=== PATIENT | male | born 1960 | race Caucasian/White ===

== ENCOUNTER → 2021-05-11 16:06 | Outpatient (CLI) | payer OTHER, SELFPAY ==
--- NOTE | 2021-05-11 | DI.ECHO.S_ITS ---
[facility] +---------+ : : [address] : : : : [id number] : : : : Phone: [phone]+ Echocardiogram Report + + :Name: KOBE CHOI Study Date: 05/11/2021 Height: 74 in : :[facility] ReadingLocation: Weight: 235 lb : : Gender: Male BSA: 2.3 m2 : :: 1960 Age: 60 yrs BP: 156/89 mmHg: :Reason For Study: ABNORMAL RESULT OF OTHER CARDIOVASCULAR : :FUNCTION STUDY : :Ordering Physician: NADIA, : :MYRIAM Performed By: Laura Moore : :Referring: MYRIAM ZUNIGA M : + + Interpretation Summary The ejection fraction is estimated to be 60-65%. There is no significant valvular heart disease. Procedure: A two-dimensional transthoracic echocardiogram with color flow and Doppler was performed. The study quality was technically adequate. There is no prior echocardiogram noted for this patient. The patient was in sinus rhythm with heart rates between 70-82 bpm during the exam. Left Ventricle: The left ventricle is normal in size and wall thickness. The ejection fraction is estimated to be 60-65%. Left ventricular wall motion is normal. Diastolic parameters suggest probable normal left ventricular diastolic function and normal filling pressures. Right Ventricle: The right ventricle is normal in size and function. Atria: Both atria are normal in size. There is no Doppler evidence for an interatrial shunt. Mitral Valve: The mitral valve is normal in structure and function. There is no mitral regurgitation noted. Aortic Valve: The aortic valve is trileaflet. The aortic valve opens well. There is no aortic valve stenosis. No aortic regurgitation is present. Tricuspid Valve: The tricuspid valve is normal in structure and function. No tricuspid regurgitation. Pulmonary artery pressures cannot be estimated because of the lack of a measurable TR jet velocity but the IVC suggests a CVP of around 3 mmHg. Pulmonic Valve: The pulmonic valve leaflets are thin and pliable; valve motion is normal. There is trace pulmonic regurgitation. Great Vessels: The aortic root is normal size. The dimensions of the ascending aorta are normal. The IVC is of normal diameter and collapses greater than 50% with a sniff. This suggests a low right atrial pressure of 3 mm Hg. Pericardium/ Pleura There is no pericardial effusion. There is no pleural effusion. MMode/2D Measurements & Calculations LVIDd: 5.0 cm LVOT diam: 2.4 cm LVIDs: 3.4 cm Ao root diam: 3.2 cm FS: 31.0 % asc Aorta Diam: 3.3 cm IVSd: 1.0 cm Ao Arch Diam (Prox Trans): 3.1 cm LVPWd: 1.0 cm LV willoughby. diameter/BSA (cm/m^2): 2.1 LV sys. diameter/BSA (cm/m^2): 1.5 LA A2 area: 24.0 cm2 RA long axis: 5.5 cm LA A4 area: 19.6 cm2 RA area: 19.5 cm2 LA length (vol): 5.8 cm RA vol: 58.1 ml LA vol: 68.8 ml RA : 25.0 ml/m2 LA vol index: 29.6 ml/m2 IVC diam: 1.5 cm RVD1 (basal): 3.6 cm TAPSE: 2.3 cm Doppler Measurements & Calculations Ao V2 max: 149.5 cm/sec LVOT Max Troy: 120.6 cm/sec Ao V2 mean: 101.2 cm/sec LV V1 max P.8 mmHg Ao max P.9 mmHg LV V1 VTI: 23.9 cm Ao mean P.6 mmHg EDVIN(I,D): 3.9 cm2 Ao V2 VTI: 27.3 cm EDVIN(V,D): 3.6 cm2 sev ratio: 0.87 EDVIN indexed to BSA (cm^2/m^2): 1.7 MV E max troy: 70.3 cm/sec PA V2 max: 122.3 cm/sec MV A max troy: 66.1 cm/sec PA V2 mean: 83.9 cm/sec MV E/A: 1.1 PA mean P.3 mmHg Med Peak E' Troy: 10.1 cm/sec PA pr(Accel): 31.0 mmHg E/E' med: 6.9 Lat Peak E' Troy: 9.6 cm/sec E/E' lat: 7.3 E/e' average: 7.1 MV dec time: 0.17 sec SVALEXEI): 105.8 ml Reading Physician:12:35 PM
== END ==
PROVIDERS: PCP Family Medicine; Referring Provider Family Medicine; Visit Provider Family Medicine
DX: R94.39 Abnormal result of other cardiovascular function study (principal)
CPT/HCPCS: 93306

== ENCOUNTER → 2021-09-29 15:08 | Outpatient (CLI) | payer OTHER, SELFPAY ==
[2021-09-29 16:13] LABS: Alanine Aminotransferase 32 IU/L (<50); Albumin 4.5 g/dL (3.5-5.0); Alkaline Phosphatase 40 U/L (38-126); Aspartate Aminotransferase 34 IU/L (17-59); BUN Creatinine Ratio 12.6 (6-22); Blood Urea Nitrogen 19 mg/dL (9-20); Calcium 9.9 mg/dL (8.4-10.2); Carbon Dioxide 27 mmol/L (22-32); Chloride 102 mmol/L (98-107); Estimated Glomerular Filt Rate 46.9 mL/min (>60); Globulin 2.3 g/dL (1.7-4.1); Glucose 90 mg/dL (80-110); HEMOLYSIS < 15 (0-50); Lipase 221 U/L (23-300); Potassium 4.4 mmol/L (3.4-5.1); Sodium 138 mmol/L (137-145); Total Protein 6.8 g/dL (6.3-8.2)
== END ==
PROVIDERS: PCP Family Medicine; Referring Provider Family Medicine; Visit Provider Family Medicine
DX: K57.90 Diverticulosis of intestine, part unspecified, without perforation or abscess without bleeding (principal); I10 Essential (primary) hypertension; R63.5 Abnormal weight gain
CPT/HCPCS: 36415; 80053; 83690

== ENCOUNTER → 2021-10-12 11:46 | Outpatient (CLI) | payer OTHER, SELFPAY ==
[2021-10-12 12:39] LABS: COVID19 -Nasal RAPID Negative (Negative)
== END ==
PROVIDERS: PCP Family Medicine; Referring Provider Physician Assistant; Visit Provider Physician Assistant
DX: Z20.822 Contact with and (suspected) exposure to COVID-19 (principal)
CPT/HCPCS: 87635

== ENCOUNTER 2021-10-14 11:55 | Day surgery (SDC) | payer OTHER, SELFPAY ==
--- NOTE | 2021-10-14 12:22 | P.HP_ITS ---
History of Present Illness History of Present Illness Date Patient Seen: 10/14/21 Chief complaint: [facility] [place] Narrative: 61 Years Old Male seen today for consideration of a screening colonoscopy. 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 He also had mild diverticulosis in the sigmoid colon. Reports that he does have some bright red bleeding if he wipes too hard after a stool. Otherwise, there have been no lower GI symptoms suggesting disease such as change in bowel habits, abdominal pain or anemia. There's been no family history of colon cancer or colon polyps. Overall health issues have been stable, including no major cardiac events for at least 6 weeks. Past Medical History: EKG 2009 Lateral Epidcondilitis (2009) Left shoulder, labial and capular tears Hyperlipidemia Hypertension Prostatitis Sacroiliitis Past Surgical History: Colonoscopy 2010, 2015 R knee, 2019 R elbow, 2011 Family History: Father: Heart Disease, Hyperlipidemia, diverticulitis Social History: Marital Status: - Caregiver, [employer] Occupation: [employer] 1-2 drinks per day Patient History Medical History (Updated 10/14/21 @ 12:43 by Betty Toscano RN) Cataract Chondritis Gallbladder pain Hypertension Serum lipids high Meds Home Medications and Allergies Home Medications Medication Instructions Recorded Confirmed Type atorvastatin 40 10/14/21 History fenofibrate 160 10/14/21 History lisinopril 10 10/14/21 History Allergies Allergy/AdvReac Type Severity Reaction Status Date / Time oxycodone [From OxyContin] AdvReac Severe breathing Verified 10/14/21 12:18 problems Review of Systems Review of Systems Narrative: All remaining ROS were reviewed and negative except as addressed. Exam Narrative Exam Narrative: GENERAL: Alert and oriented, appearing stated age and in no acute distress. HEENT: Head normocephalic/atraumatic. Extraocular movements intact. LUNGS: Clear to ausculation bilaterally, no wheezes, rhonchi or rales. CV: Normal S1 and S2 with regular rate and rhythm, no audible murmurs, rubs or gallops. ABDOMEN: Soft, non-tender, non-distended, no organomegaly. Positive bowel sounds. EXTREMITIES: No clubbing, cyanosis, or edema. NEURO: Cranial nerves II through XII grossly intact, no focal deficits. PSYCH: Alert and oriented x 3. SKIN: No concerning lesions. Assessment & Plan Assessment & Plan narrative: 1. History of colon polyps 2. Screening for colon cancer 3. Hematochezia 4. Diverticulosis Plan for colonoscopy. The nature and character of the procedure as well as anticipated results were discussed. The possibility of not completing the procedure was also discussed. Possible complications including aspiration pneumonia, bleeding, perforation and reaction to medications either for sedation or preparation and missed lesions were discussed. Questions were answered and proceeding to the colonoscopy was elected. Informed consent signed. I sincerely appreciate the referral allowing me to participate in this patient's care. Please contact me with any questions or concerns.
[2021-10-14 12:23] VITALS: BP 136/84; PULSE 70; RESP 16; TEMP 36.3; O2SAT 100; BMI 29.5
--- NOTE | 2021-10-14 12:25 | P.OP.COLON_ITS ---
Operative Date/Time/Diagnoses Date of procedure: 10/14/21 Procedure Notes SCOAP/Timeout: 1:45 p.m. Procedure in detail: ENDOSCOPIST: Patricia Armijo MD Sedation RN: Lula Kinsey RN Sedation start time: 1:47 p.m. Sedation end time: 2:03 p.m. PROCEDURE: Colonoscopy INDICATIONS: 1. History of colon polyps 2. Screening for colon cancer 3. Hematochezia 4. Diverticulosis MEDICATION: Levsin 0.125 mg sublingual, incremental doses of Versed and fen tanyl until appropriate level sedation achieved. ASA CLASS: 2 CECAL WITHDRAWAL TIME: 8 minutes COMPLICATIONS: None. EXTENT OF PROCEDURE: Cecum. QUALITY OF PREP: Good with portions of liquid stool. PROCEDURE: Prior to insertion of the colonoscope, a digital rectal examination was accomplished with circumferential palpation of the distal rectal mucosa without significant findings being noted. The high-definition colonoscope was passed into the rectum in the usual fashion and advanced over to the cecum without difficulty. The ileocecal valve, appendiceal stoma, and medial wall all could be inspected and no abnormalities were seen. ASCENDING COLON: As the colonoscope was withdrawn, care was taken to expose and inspect the haustral folds and no abnormalities were seen. HEPATIC FLEXURE: Normal, no polyps, diverticula or other abnormalities. TRANSVERSE COLON: Normal, no polyps, diverticula or other abnormalities. DESCENDING COLON: Normal, no polyps, diverticula or other abnormalities. SIGMOID COLON: Few scattered diverticuli otherwise, normal, no polyps, or other abnormalities. RECTUM: Normal. J maneuver was produced. There was no significant perianal disease. The J maneuver was broken. The remainder of the rectum was inspected and there was moderate external hemorrhoid disease. The scope was withdrawn. IMPRESSION: 1. Normal colonoscopy 2. Sigmoid diverticulosis, mild 3. External hemorrhoids, moderate PLAN: 1. Repeat colonoscopy in 5 years. The possibility of a missed lesion including a malignancy has been discussed with the patient previously. Potential alarm symptoms have been discussed and should be reported immediately.
[2021-10-14] MEDS: MIDAZOLAM 5 MG/5 ML VIAL IV (13:55)
[2021-10-14] MEDS: fentaNYL 250 MCG/5 ML INJ IV (13:55)
[2021-10-14 14:09] VITALS: BP 115/72; PULSE 69; RESP 9; TEMP 36.4; O2SAT 93
[2021-10-14 14:14] VITALS: BP 124/72; PULSE 68; RESP 12; O2SAT 96
[2021-10-14 14:20] VITALS: BP 118/73; PULSE 63; RESP 10; O2SAT 93
[2021-10-14 14:34] VITALS: BP 129/77; PULSE 70; RESP 11; O2SAT 96
== END 2021-10-14 14:48 | disposition home or self-care (01) ==
PROVIDERS: PCP Family Medicine; Referring Provider Student in an Organized Health Care Education/Training Program; Visit Provider Student in an Organized Health Care Education/Training Program
PROC: 0DJD8ZZ Inspection of Lower Intestinal Tract, Via Natural or Artificial Opening Endoscopic (ICD-10-PCS; CPT 45378; principal; 2021-10-14 13:00)
DX: K92.1 Melena (principal); Z86.010 Personal history of colon polyps; K57.30 Diverticulosis of large intestine without perforation or abscess without bleeding; K64.4 Residual hemorrhoidal skin tags
CPT/HCPCS: 45378; J2250; J3010

== ENCOUNTER → 2021-10-17 15:31 | Outpatient (CLI) | payer OTHER, SELFPAY ==
--- NOTE | 2021-10-17 | DI.US.S_ITS ---
PROCEDURE: US ABDOMEN COMPLETE INDICATIONS: Right upper quadrant pain TECHNIQUE: Real-time scanning was performed of the abdominal and retroperitoneal organs, with image documentation. COMPARISON: None. FINDINGS: Liver: The liver is normal in size in the parenchyma is diffusely mildly hyperechoic. No focal liver mass. The margin appears smooth. Gallbladder: The gallbladder is normal without stones, sludge, wall thickening, or pericholecystic fluid. Biliary ducts: Intrahepatic bile ducts are non-dilated. Extrahepatic bile duct caliber measures 2.8 mm. Normal is 6-7 mm or less in diameter, or 10 mm or less post-cholecystectomy. Pancreas: Not seen due to bowel gas Spleen: Spleen is slightly enlarged in size measuring 13.2 cm in length. Kidneys: Kidneys are normal in size and echotexture. Right kidney measures 12.9 cm long; left kidney measures 13.3 cm long. No hydronephrosis or nephrolithiasis. No solid masses. Subcentimeter left upper pole cortical renal cyst. Aorta: Visualized aorta is normal in caliber at less than 3 cm. Proximal aorta was not well seen. Iliacs: Proximal common iliac arteries are normal in caliber at less than 2.5 cm. IVC: Intrahepatic inferior vena cava is patent. Miscellaneous: No free abdominal fluid. IMPRESSION: 1. Diffuse hepatic hyperechogenicity suggesting steatosis or other intrinsic liver disease. 2. Mild splenomegaly. 3. Nonvisualized pancreas and proximal aorta. Dictated by: Charu Almazan M.D. on 10/17/2021 at 16:49 Approved by: Charu Almazan M.D. on 10/17/2021 at 16:53
== END ==
PROVIDERS: PCP Family Medicine; Referring Provider Family Medicine; Visit Provider Family Medicine
DX: R16.1 Splenomegaly, not elsewhere classified (principal); R10.11 Right upper quadrant pain
CPT/HCPCS: 76700